=== PATIENT | female | born 1980 | race Caucasian/White ===

== ENCOUNTER 2016-07-10 14:13 | Emergency (ER) | payer OTHER ==
[2016-07-10] MEDS ORDERED: MECLIZINE 12.5 MG TAB As Ordered ONE (15:44)
--- NOTE | 2016-07-10 16:12 | REP ---
Head CT without contrast: History: Vertigo. Comparison study: No comparison brain imaging. CT findings: Bone window settings demonstrate an intact bony calvarium. There is no evidence of skull fracture or incidental bony calvarial lesion. There is mild mucosal thickening in the upper portion of the left maxillary sinus. The visualized paranasal sinuses appear otherwise clear. No intraorbital abnormality is seen. On soft tissue window setting images; the lateral, third, and fourth ventricles are normal in size and position. Samaniego-white differentiation pattern is normal above and below the tentorium. There are is no evidence of intracranial hemorrhage. No mass, edema, infarction, or midline shift is seen. No extra-axial fluid collection is appreciated. Impression: Mild mucosal thickening in the left maxillary sinus, otherwise negative noncontrast head CT. Signed by Curtis Metz MD 07/10/2016 04:04 P
--- NOTE | 2016-07-10 16:40 | EDDOCDS ---
Physician Documentation [facility] Name: Samira Dozier Age: 36 yrs Sex: Female : 1980 Arrival Date: 07/10/2016 Time: 14:13 Bed PR Private MD: Devin Zepeda MD Disposition: 07/10/16 16:29 Discharged to Home/Self Care. Impression: Benign paroxysmal vertigo, unspecified ear, Nausea with vomiting, unspecified. - Condition is Stable. - Discharge Instructions: Benign Positional Vertigo, Nausea and Vomiting. - Prescriptions for Meclizine 25 mg Oral Tablet - take 1 tablet by ORAL route every 8 hours As needed; 30 tablet. Tigan 300 mg Oral Capsule - take 1 capsule by ORAL route every 12 hours As needed; 20 capsule. - Work Release Form - 2 day, Medication Reconciliation, Local Pharmacy Hours form. - Follow up: Emergency Department; When: As needed; Reason: Worsening of conditions. Follow up: Private Physician; When: 2 - 3 days; Reason: Wound/Symptom Recheck, Recheck today's complaints, Continuance of care. - Problem is new. - Symptoms have improved. Historical: - Allergies: No known drug Allergies; - Home Meds: 1. escitalopram oxalate 10 mg oral tab 1 tab once daily 2. omeprazole 40 mg oral cpDR 1 cap once daily - PMHx: Hiatal Hernia; ITP; GERD; Anxiety; - PSHx: cyst removal from neck; - Social history: Smoking status: Patient uses tobacco products, current some day smoker. No barriers to communication noted, The patient speaks fluent Trinidadian, Speaks appropriately for age. - Family history: Not pertinent. - : The pt / caregiver states he / she is not on anticoagulants. Home medication list is obtained from the patient. - Exposure Risk Screening:: None identified. 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 unk LMP jo3 Vital Signs: 14:16 BP 164 / 101; Pulse 103; Resp 20; Temp 98.0(O); Pulse Ox 98% on R/A; Weight 96.62 kg / jrd 213.01 lbs (R); Height 5 ft. 5 in. (165.10 cm) (R); Pain 3/10; 15:10 BP 146 / 108 LA Supine (man/lg); jml1 16:38 BP 156 / 101; Pulse 81; Resp 18; Temp 98.6(T); Pulse Ox 95% on R/A; Pain 0/10; ck1 14:16 Body Mass Index 35.44 (96.62 kg, 165.10 cm) jrd MDM: 14:35 ECG WITH READING ER PHYS+CARDIAG ordered. EDMS 15:06 Recheck B/P ordered. dt4 15:39 Meclizine 25 mg PO once ordered. dt4 15:39 CT Head Without Contrast Ordered. EDMS 15:52 ED course: PT STATES BEGINNING AT 1000 TODAY, STALLWORTH WITH "VERTIGO SYMPTOMS INCLUDING dt4 DIZZINESS, FALLING OVER, NAUSEA AND VOMITING. STATES WAS AT HOME, CLEANING TODAY AND WHEN SHE HUNG A PICTURE, SHE FELL OVER. STATES SYMPTOMS WORSE WHEN LOOKING UP AND DOWN. STATES DRANK THREE 16 OZ BEERS LAST NIGHT, WHICH IS NORMAL FOR HER, AND IS A SMOKER. FAMILY HX OF CVA IN UNCLE, NONE FOR PARENTS. DENIES CONTROL. STATES NO HEAD INJURY LAST NIGHT WHILE DRINKING. STATES TOOK MOTRIN TODAY AND STALLWORTH RESOLVED, BUT STILL HAVING DIFFICULTY WALKING, I ALWAYS TIP TO THE RIGHT. . 16:15 [facility] Payment Agreement was scanned into [employer] and attached to record. [facility] 16:15 Financial registration complete. gjb Administered Medications: 15:47 Drug: Meclizine 25 mg [meclizine 12.5 mg tablet (2 tabs)] Route: PO; ck1 Signatures: Dispatcher [employer] EDMS Tracey Cannon RN RN ck1 Phoebe LoaizaRN RN jo3 Kiki Middleton PA-C PA-C dt4 Jazmyne Marks The chart was reviewed and I authenticate all verbal orders and agree with the evaluation and treatment provided.Attachments: 16:15 [facility] Payment Agreement gjb MTDD
--- NOTE | 2016-07-10 16:40 | EDDOCDS ---
Nurse's Notes [facility] Name: Samira Dozier Age: 36 yrs Sex: Female : 1980 Arrival Date: 07/10/2016 Time: 14:13 Bed PR Private MD: Devin Zepeda MD Diagnosis: Benign paroxysmal vertigo, unspecified ear;Nausea with vomiting, unspecified Presentation: 07/10 14:27 Presenting complaint: Patient states: Awoke this morning at 1000 and had a STALLWORTH and was jo3 mildly dizzy. Took ibuprofen. STALLWORTH resolved and dizziness keeps getting worse. dizziness remains when pt sits still but is much worse if she moves her head. Adult Sepsis Screening: The patient does not have new or worsening altered mentation. Patient's respiratory rate is less than 22. Systolic blood pressure is greater than 100. Patient has a qSOFA score of 0- Negative Sepsis Screen. Suicide/Homicide risk assessment- the patient denies having any suicidal and/or homicidal ideations and does not present with any other emotional, behavioral or mental health complaints. Status: Patient is not a legal service specialist or dependent. Transition of care: patient was not received from another setting of care. 14:27 Acuity: NATO Level 3 jo3 14:27 Method Of Arrival: Walkin/Carried/Asstd jo3 Triage Assessment: 14:31 General: Appears in no apparent distress, Behavior is appropriate for age, cooperative. jo3 Pain:. HIV screening NA for this visit Offered previously. Neurological: Level of Consciousness is awake, alert, Oriented to person, place, time, Pt reports dizziness at rest that increases with head and body movement . Respiratory: Airway is patent Respiratory effort is even, unlabored. Derm: Skin is pink, warm & dry. 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 unk LMP jo3 Historical: - Allergies: No known drug Allergies; - Home Meds: 1. escitalopram oxalate 10 mg oral tab 1 tab once daily 2. omeprazole 40 mg oral cpDR 1 cap once daily - PMHx: Hiatal Hernia; ITP; GERD; Anxiety; - PSHx: cyst removal from neck; - Social history: Smoking status: Patient uses tobacco products, current some day smoker. No barriers to communication noted, The patient speaks fluent Armenian, Speaks appropriately for age. - Family history: Not pertinent. - : The pt / caregiver states he / she is not on anticoagulants. Home medication list is obtained from the patient. - Exposure Risk Screening:: None identified. Screenin:38 Screening information is obtained from the patient. Fall risk: No risks identified. ck1 Assistance ADL's: requires no assistance with activities of daily living. Abuse/DV Screen: The patient / caregiver reports he/she is: not in a situation that causes fear, pain or injury. Nutritional screening: No deficits noted. Advance Directives: Currently, there is no health care proxy. home support is adequate. Assessment: 16:38 General: Appears in no apparent distress, comfortable, Behavior is appropriate for age, ck1 cooperative, pleasant. Pain: Denies pain. Neurological: Level of Consciousness is awake, alert, obeys commands, Oriented to person, place, time, Denies dizziness. Respiratory: Respiratory effort is unlabored, Respiratory pattern is regular, symmetrical. Derm: Skin is intact, is healthy with good turgor, Skin is pink, warm & dry. Musculoskeletal: No deficits noted. Vital Signs: 14:16 BP 164 / 101; Pulse 103; Resp 20; Temp 98.0(O); Pulse Ox 98% on R/A; Weight 96.62 kg jrd (R); Height 5 ft. 5 in. (165.10 cm) (R); Pain 3/10; 15:10 BP 146 / 108 LA Supine (man/lg); jml1 16:38 BP 156 / 101; Pulse 81; Resp 18; Temp 98.6(T); Pulse Ox 95% on R/A; Pain 0/10; ck1 14:16 Body Mass Index 35.44 (96.62 kg, 165.10 cm) [facility] Vitals: 14:16 Log In Time: July 10, 2016 at 14:11. [facility] ED Course: 14:16 Patient visited by Cecil Mcnulty PCA. jrd 14:16 Devin Zepeda is Private Physician. jrd 14:16 Patient moved to Waiting jrd 14:17 Patient visited by Cecil Mcnulty PCA. jrd 14:17 Patient moved to Pre RCE jrd 14:30 Triage Initiated jo3 14:33 Patient visited by Phoebe Loaiza RN. jo3 14:38 Patient moved to PD2 / 27 jo3 14:43 Patient visited by Abelardo Issa. jml1 14:43 EKG done. (by ED staff). Reviewed by Cristofer Moore MD. jml1 14:45 Patient moved to TR1 jml1 14:48 Patient moved to Pre RCE ck1 14:56 Patient moved to Triage 2 ck1 15:11 Patient visited by Abelardo Issa. jml1 15:18 Kiki Middleton PA-C is PHCP. dt4 15:18 Cristofer Moore MD is Attending Physician. dt4 15:18 Patient visited by Kiki Middleton PA-C. dt4 15:47 Patient visited by Tracey Cannon RN. ck1 15:47 Patient moved to TR1 ck1 16:13 Patient moved to PR nb2 16:15 [facility] Payment Agreement was scanned into [employer] and attached to record. gjb 16:15 CT Head Without Contrast Returned. EDMS 16:38 No IV's were initiated during this patient's visit. No procedures done that require ck1 assistance. 16:39 The patient / caregiver is instructed regarding the plan of care and ED course. ck1 Administered Medications: 15:47 Drug: Meclizine 25 mg [meclizine 12.5 mg tablet (2 tabs)] Route: PO; ck1 Order Results: Radiology Order: CT Head Without Contrast Test: CT Head Without Contrast REASON FOR EXAMINATION: vertigo; Head CT without contrast:; ; History: Vertigo.; ; Comparison study: No comparison brain imaging.; ; CT findings: Bone window settings demonstrate an intact bony calvarium. There; is no evidence of skull fracture or incidental bony calvarial lesion. There is; mild mucosal thickening in the upper portion of the left maxillary sinus. The; visualized paranasal sinuses appear otherwise clear. No intraorbital abnormality; is seen. On soft tissue window setting images; the lateral, third, and fourth; ventricles are normal in size and position. Samaniego-white differentiation pattern; is normal above and below the tentorium. There are is no evidence of; intracranial hemorrhage. No mass, edema, infarction, or midline shift is seen.; No extra-axial fluid collection is appreciated.; ; Impression:; ; Mild mucosal thickening in the left maxillary sinus, otherwise negative; noncontrast head CT.; ; ; Signed by; Curtis Metz MD 07/10/2016 04:04 P; Outcome: 16:29 Discharge ordered by Provider. dt4 16:37 Discharge Assessment: Patient awake, alert and oriented x 3. No cognitive and/or ck1 functional deficits noted. Patient verbalized understanding of disposition instructions. patient administered narcotics - no. The following High Risk Discharge criteria are identified: None. Discharged to home ambulatory. Condition: stable. Discharge instructions given to patient, Instructed on discharge instructions, follow up and referral plans. medication usage, Demonstrated understanding of instructions, medications, Pt was receptive of discharge instructions/ teaching. Prescriptions given X 2, Work note provided to patient. CT Study completed. Property :Personal belongings accompany Pt. 16:39 Patient left the ED. ck1 Signatures: Dispatcher [employer] EDMS Tracey Cannon,RN RN ck1 Phoebe LoaizaRN RN Abelardo Angeles jml1 Kiki Middleton, PA-C PA-C dt4 Cecil Mcnulty, Jazmyne Hess Nicole nb2 MAURILIO
--- NOTE | 2016-07-12 08:57 | ECGEPIP ---
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
--- NOTE | 2016-07-12 17:40 | EDDOCDS ---
Physician Documentation [facility] Name: Samira Dozier Age: 36 yrs Sex: Female : 1980 Arrival Date: 07/10/2016 Time: 14:13 Bed PR Private MD: Devin Zepeda MD Disposition: 07/10/16 16:29 Discharged to Home/Self Care. Impression: Benign paroxysmal vertigo, unspecified ear, Nausea with vomiting, unspecified. - Condition is Stable. - Discharge Instructions: Benign Positional Vertigo, Nausea and Vomiting. - Prescriptions for Meclizine 25 mg Oral Tablet - take 1 tablet by ORAL route every 8 hours As needed; 30 tablet. Tigan 300 mg Oral Capsule - take 1 capsule by ORAL route every 12 hours As needed; 20 capsule. - Work Release Form - 2 day, Medication Reconciliation, Local Pharmacy Hours form. - Follow up: Emergency Department; When: As needed; Reason: Worsening of conditions. Follow up: Private Physician; When: 2 - 3 days; Reason: Wound/Symptom Recheck, Recheck today's complaints, Continuance of care. - Problem is new. - Symptoms have improved. Historical: - Allergies: No known drug Allergies; - Home Meds: 1. escitalopram oxalate 10 mg oral tab 1 tab once daily 2. omeprazole 40 mg oral cpDR 1 cap once daily - PMHx: Hiatal Hernia; ITP; GERD; Anxiety; - PSHx: cyst removal from neck; - Social history: Smoking status: Patient uses tobacco products, current some day smoker. No barriers to communication noted, The patient speaks fluent Palestinian, Speaks appropriately for age. - Family history: Not pertinent. - : The pt / caregiver states he / she is not on anticoagulants. Home medication list is obtained from the patient. - Exposure Risk Screening:: None identified. 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 unk LMP jo3 Vital Signs: 14:16 BP 164 / 101; Pulse 103; Resp 20; Temp 98.0(O); Pulse Ox 98% on R/A; Weight 96.62 kg / jrd 213.01 lbs (R); Height 5 ft. 5 in. (165.10 cm) (R); Pain 3/10; 15:10 BP 146 / 108 LA Supine (man/lg); jml1 16:38 BP 156 / 101; Pulse 81; Resp 18; Temp 98.6(T); Pulse Ox 95% on R/A; Pain 0/10; ck1 14:16 Body Mass Index 35.44 (96.62 kg, 165.10 cm) jrd MDM: 14:35 ECG WITH READING ER PHYS+CARDIAG ordered. EDMS 15:06 Recheck B/P ordered. dt4 15:39 Meclizine 25 mg PO once ordered. dt4 15:39 CT Head Without Contrast Ordered. EDMS 15:52 ED course: PT STATES BEGINNING AT 1000 TODAY, STALLWORTH WITH "VERTIGO SYMPTOMS INCLUDING dt4 DIZZINESS, FALLING OVER, NAUSEA AND VOMITING. STATES WAS AT HOME, CLEANING TODAY AND WHEN SHE HUNG A PICTURE, SHE FELL OVER. STATES SYMPTOMS WORSE WHEN LOOKING UP AND DOWN. STATES DRANK THREE 16 OZ BEERS LAST NIGHT, WHICH IS NORMAL FOR HER, AND IS A SMOKER. FAMILY HX OF CVA IN UNCLE, NONE FOR PARENTS. DENIES CONTROL. STATES NO HEAD INJURY LAST NIGHT WHILE DRINKING. STATES TOOK MOTRIN TODAY AND STALLWORTH RESOLVED, BUT STILL HAVING DIFFICULTY WALKING, I ALWAYS TIP TO THE RIGHT. . 16:15 [facility] Payment Agreement was scanned into [employer] and attached to record. [facility] 16:15 Financial registration complete. [facility] 07/11 11:39 T-Sheet-- Draft Copy was scanned into [employer] and attached to record. gb 11:39 ECG/EKG was scanned into [employer] and attached to record. gb Administered Medications: 07/10 15:47 Drug: Meclizine 25 mg [meclizine 12.5 mg tablet (2 tabs)] Route: PO; ck1 Signatures: Dispatcher [employer] EDOH Lupe Hensley, Reg Reg gb Tracey CannonRN RN ck1 Phoebe LoaizaRN RN jo3 Kiki Middleton PA-C PA-C dt4 Jazmyne Marks The chart was reviewed and I authenticate all verbal orders and agree with the evaluation and treatment provided.Attachments: 16:15 [facility] Payment Agreement [facility] 07/11 11:39 T-Sheet-- Draft Copy gb 11:39 ECG/EKG Chart Complete MTDD
--- NOTE | 2016-07-12 17:40 | EDDOCDS ---
Physician Documentation [facility] Name: Samira Dozier Age: 36 yrs Sex: Female : 1980 Arrival Date: 07/10/2016 Time: 14:13 Bed PR Private MD: Devin Zepeda MD Disposition: 07/10/16 16:29 Discharged to Home/Self Care. Impression: Benign paroxysmal vertigo, unspecified ear, Nausea with vomiting, unspecified. - Condition is Stable. - Discharge Instructions: Benign Positional Vertigo, Nausea and Vomiting. - Prescriptions for Meclizine 25 mg Oral Tablet - take 1 tablet by ORAL route every 8 hours As needed; 30 tablet. Tigan 300 mg Oral Capsule - take 1 capsule by ORAL route every 12 hours As needed; 20 capsule. - Work Release Form - 2 day, Medication Reconciliation, Local Pharmacy Hours form. - Follow up: Emergency Department; When: As needed; Reason: Worsening of conditions. Follow up: Private Physician; When: 2 - 3 days; Reason: Wound/Symptom Recheck, Recheck today's complaints, Continuance of care. - Problem is new. - Symptoms have improved. Historical: - Allergies: No known drug Allergies; - Home Meds: 1. escitalopram oxalate 10 mg oral tab 1 tab once daily 2. omeprazole 40 mg oral cpDR 1 cap once daily - PMHx: Hiatal Hernia; ITP; GERD; Anxiety; - PSHx: cyst removal from neck; - Social history: Smoking status: Patient uses tobacco products, current some day smoker. No barriers to communication noted, The patient speaks fluent Irish, Speaks appropriately for age. - Family history: Not pertinent. - : The pt / caregiver states he / she is not on anticoagulants. Home medication list is obtained from the patient. - Exposure Risk Screening:: None identified. 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 unk LMP jo3 Vital Signs: 14:16 BP 164 / 101; Pulse 103; Resp 20; Temp 98.0(O); Pulse Ox 98% on R/A; Weight 96.62 kg / jrd 213.01 lbs (R); Height 5 ft. 5 in. (165.10 cm) (R); Pain 3/10; 15:10 BP 146 / 108 LA Supine (man/lg); jml1 16:38 BP 156 / 101; Pulse 81; Resp 18; Temp 98.6(T); Pulse Ox 95% on R/A; Pain 0/10; ck1 14:16 Body Mass Index 35.44 (96.62 kg, 165.10 cm) jrd MDM: 14:35 ECG WITH READING ER PHYS+CARDIAG ordered. EDMS 15:06 Recheck B/P ordered. dt4 15:39 Meclizine 25 mg PO once ordered. dt4 15:39 CT Head Without Contrast Ordered. EDMS 15:52 ED course: PT STATES BEGINNING AT 1000 TODAY, STALLWORTH WITH "VERTIGO SYMPTOMS INCLUDING dt4 DIZZINESS, FALLING OVER, NAUSEA AND VOMITING. STATES WAS AT HOME, CLEANING TODAY AND WHEN SHE HUNG A PICTURE, SHE FELL OVER. STATES SYMPTOMS WORSE WHEN LOOKING UP AND DOWN. STATES DRANK THREE 16 OZ BEERS LAST NIGHT, WHICH IS NORMAL FOR HER, AND IS A SMOKER. FAMILY HX OF CVA IN UNCLE, NONE FOR PARENTS. DENIES CONTROL. STATES NO HEAD INJURY LAST NIGHT WHILE DRINKING. STATES TOOK MOTRIN TODAY AND STALLWORTH RESOLVED, BUT STILL HAVING DIFFICULTY WALKING, I ALWAYS TIP TO THE RIGHT. . 16:15 [facility] Payment Agreement was scanned into [employer] and attached to record. [facility] 16:15 Financial registration complete. [facility] 07/11 11:39 T-Sheet-- Draft Copy was scanned into [employer] and attached to record. gb 11:39 ECG/EKG was scanned into [employer] and attached to record. gb Administered Medications: 07/10 15:47 Drug: Meclizine 25 mg [meclizine 12.5 mg tablet (2 tabs)] Route: PO; ck1 Signatures: Dispatcher [employer] EDAK Lupe Hensley, Reg Reg gb Tracey CannonRN RN ck1 Phoebe LoaizaRN RN jo3 Kiki Middleton PA-C PA-C dt4 Jazmyne Marks The chart was reviewed and I authenticate all verbal orders and agree with the evaluation and treatment provided.Attachments: 16:15 [facility] Payment Agreement [facility] 07/11 11:39 T-Sheet-- Draft Copy gb 11:39 ECG/EKG Chart Complete MTDD
--- NOTE | 2016-07-12 17:40 | EDDOCDS ---
Nurse's Notes [facility] Name: Doreen Dozier Age: 36 yrs Sex: Female : 1980 Arrival Date: 07/10/2016 Time: 14:13 Bed PR Private MD: Devin Zepeda MD Diagnosis: Benign paroxysmal vertigo, unspecified ear;Nausea with vomiting, unspecified Presentation: 07/10 14:27 Presenting complaint: Patient states: Awoke this morning at 1000 and had a STALLWORTH and was jo3 mildly dizzy. Took ibuprofen. STALLWORTH resolved and dizziness keeps getting worse. dizziness remains when pt sits still but is much worse if she moves her head. Adult Sepsis Screening: The patient does not have new or worsening altered mentation. Patient's respiratory rate is less than 22. Systolic blood pressure is greater than 100. Patient has a qSOFA score of 0- Negative Sepsis Screen. Suicide/Homicide risk assessment- the patient denies having any suicidal and/or homicidal ideations and does not present with any other emotional, behavioral or mental health complaints. 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 Transition of care: patient was not received from another setting of care. 14:27 Acuity: NATO Level 3 jo3 14:27 Method Of Arrival: Walkin/Carried/Asstd jo3 Triage Assessment: 14:31 General: Appears in no apparent distress, Behavior is appropriate for age, cooperative. jo3 Pain:. HIV screening NA for this visit Offered previously. Neurological: Level of Consciousness is awake, alert, Oriented to person, place, time, Pt reports dizziness at rest that increases with head and body movement . Respiratory: Airway is patent Respiratory effort is even, unlabored. Derm: Skin is pink, warm & dry. 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 unk LMP jo3 Historical: - Allergies: No known drug Allergies; - Home Meds: 1. escitalopram oxalate 10 mg oral tab 1 tab once daily 2. omeprazole 40 mg oral cpDR 1 cap once daily - PMHx: Hiatal Hernia; ITP; GERD; Anxiety; - PSHx: cyst removal from neck; - Social history: Smoking status: Patient uses tobacco products, current some day smoker. No barriers to communication noted, The patient speaks fluent [place], Speaks appropriately for age. - Family history: Not pertinent. - : The pt / caregiver states he / she is not on anticoagulants. Home medication list is obtained from the patient. - Exposure Risk Screening:: None identified. Screenin:38 Screening information is obtained from the patient. Fall risk: No risks identified. ck1 Assistance ADL's: requires no assistance with activities of daily living. Abuse/DV Screen: The patient / caregiver reports he/she is: not in a situation that causes fear, pain or injury. Nutritional screening: No deficits noted. Advance Directives: Currently, there is no health care proxy. home support is adequate. Assessment: 16:38 General: Appears in no apparent distress, comfortable, Behavior is appropriate for age, ck1 cooperative, pleasant. Pain: Denies pain. Neurological: Level of Consciousness is awake, alert, obeys commands, Oriented to person, place, time, Denies dizziness. Respiratory: Respiratory effort is unlabored, Respiratory pattern is regular, symmetrical. Derm: Skin is intact, is healthy with good turgor, Skin is pink, warm & dry. Musculoskeletal: No deficits noted. Vital Signs: 14:16 BP 164 / 101; Pulse 103; Resp 20; Temp 98.0(O); Pulse Ox 98% on R/A; Weight 96.62 kg jrd (R); Height 5 ft. 5 in. (165.10 cm) (R); Pain 3/10; 15:10 BP 146 / 108 LA Supine (man/lg); jml1 16:38 BP 156 / 101; Pulse 81; Resp 18; Temp 98.6(T); Pulse Ox 95% on R/A; Pain 0/10; ck1 14:16 Body Mass Index 35.44 (96.62 kg, 165.10 cm) [facility] Vitals: 14:16 Log In Time: July 10, 2016 at 14:11. [facility] ED Course: 14:16 Patient visited by Cecil Mcnulty PCA. jrd 14:16 Devin Zepeda is Private Physician. jrd 14:16 Patient moved to Waiting jrd 14:17 Patient visited by Cecil Mcnulty PCA. jrd 14:17 Patient moved to Pre RCE jrd 14:30 Triage Initiated jo3 14:33 Patient visited by Phoebe Loaiza RN. jo3 14:38 Patient moved to PD2 / 27 jo3 14:43 Patient visited by Abelardo Issa. jml1 14:43 EKG done. (by ED staff). Reviewed by Cristofer Moore MD. jml1 14:45 Patient moved to TR1 jml1 14:48 Patient moved to Pre RCE ck1 14:56 Patient moved to Triage 2 ck1 15:11 Patient visited by Abelardo Issa. jml1 15:18 Jackson Middleton PA-C is PHCP. dt4 15:18 Cristofer Moore MD is Attending Physician. dt4 15:18 Patient visited by Jackson Middleton PA-C. dt4 15:47 Patient visited by Tracey Cannon RN. ck1 15:47 Patient moved to TR1 ck1 16:13 Patient moved to PR nb2 16:15 [facility] Payment Agreement was scanned into [employer] and attached to record. gjb 16:15 CT Head Without Contrast Returned. EDMS 16:38 No IV's were initiated during this patient's visit. No procedures done that require ck1 assistance. 16:39 The patient / caregiver is instructed regarding the plan of care and ED course. ck1 07/11 11:39 T-Sheet-- Draft Copy was scanned into [employer] and attached to record. gb 11:39 ECG/EKG was scanned into [employer] and attached to record. gb 07/12 09:17 EKG-ADULT Returned. 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; : 1980 Requested By: JACKSON Eli PA-C; Order Number: [id number] Reading MD: Kylie Rodriguez; Measurements; Intervals Harriet; Rate: 84 P: 29; NE: 125 QRS: 28; QRSD: 104 T: 37; QT: 341; QTc: 405; Interpretive Statements; SINUS RHYTHM; POSSIBLE INFERIOR MYOCARDIAL INFARCTION, PROBABLY OLD; INCREASED RATE 09/27/13; Electronically Signed On 07-12-2016 8:57:49 EST by Kylie Rodriguez; Radiology Order: CT Head Without Contrast Test: CT Head Without Contrast REASON FOR EXAMINATION: vertigo; Head CT without contrast:; ; History: Vertigo.; ; Comparison study: No comparison brain imaging.; ; CT findings: Bone window settings demonstrate an intact bony calvarium. There; is no evidence of skull fracture or incidental bony calvarial lesion. There is; mild mucosal thickening in the upper portion of the left maxillary sinus. The; visualized paranasal sinuses appear otherwise clear. No intraorbital abnormality; is seen. On soft tissue window setting images; the lateral, third, and fourth; ventricles are normal in size and position. Samaniego-white differentiation pattern; is normal above and below the tentorium. There are is no evidence of; intracranial hemorrhage. No mass, edema, infarction, or midline shift is seen.; No extra-axial fluid collection is appreciated.; ; Impression:; ; Mild mucosal thickening in the left maxillary sinus, otherwise negative; noncontrast head CT.; ; ; Signed by; Curtis Metz MD 07/10/2016 04:04 P; Outcome: 16:29 Discharge ordered by Provider. dt4 16:37 Discharge Assessment: Patient awake, alert and oriented x 3. No cognitive and/or ck1 functional deficits noted. Patient verbalized understanding of disposition instructions. patient administered narcotics - no. The following High Risk Discharge criteria are identified: None. Discharged to home ambulatory. Condition: stable. Discharge instructions given to patient, Instructed on discharge instructions, follow up and referral plans. medication usage, Demonstrated understanding of instructions, medications, Pt was receptive of discharge instructions/ teaching. Prescriptions given X 2, Work note provided to patient. CT Study completed. Property :Personal belongings accompany Pt. 16:39 Patient left the ED. ck1 Signatures: Dispatcher [employer] EDMS Lupe Hensley, Reg Reg Tracey EliasRN RN ck1 Phoebe Loaiza RN RN Abelardo Angeles jml1 Jackson Middleton, PA-C PA-C dt4 Cecil Mcnulty PCA PCA jrd Beck, Gabriela gjb Rissa Pfeiffer nb2 Chart Complete MTDD
== END 2016-07-10 16:39 | disposition home or self-care (01) ==
LOC: M ED 14:13
DX: H81.10 Benign paroxysmal vertigo, unspecified ear (principal); R11.2 Nausea with vomiting, unspecified; D69.3 Immune thrombocytopenic purpura; K21.9 Gastro-esophageal reflux disease without esophagitis; F41.9 Anxiety disorder, unspecified; F17.210 Nicotine dependence, cigarettes, uncomplicated; Z79.899 Other long term (current) drug therapy

== ENCOUNTER → 2016-09-25 | Outpatient (REF) | payer OTHER | LOC: M OUTALCOH 09:43 | PROVIDERS: ATTEND Psychiatry & Neurology Psychiatry | DX: Z13.9 Encounter for screening, unspecified (principal); F12.10 Cannabis abuse, uncomplicated ==

== ENCOUNTER → 2016-10-09 | Outpatient (CLI) | payer OTHER | LOC: M OUTALCOH 10:25 | PROVIDERS: ATTEND Psychiatry & Neurology Psychiatry | DX: Z13.9 Encounter for screening, unspecified (principal); F10.20 Alcohol dependence, uncomplicated ==

== ENCOUNTER 2016-10-30 09:30 | Outpatient (RCR) | payer OTHER | END 2016-11-06 | LOC: M OUTALCOH 09:30 | PROVIDERS: ATTEND Psychiatry & Neurology Psychiatry | DX: Z13.9 Encounter for screening, unspecified (principal); F10.20 Alcohol dependence, uncomplicated; F17.200 Nicotine dependence, unspecified, uncomplicated ==

== ENCOUNTER 2016-11-07 09:30 | Outpatient (RCR) | payer OTHER | END 2016-12-06 | LOC: M OUTALCOH 09:30 | PROVIDERS: ATTEND Psychiatry & Neurology Psychiatry | DX: Z13.9 Encounter for screening, unspecified (principal); F10.20 Alcohol dependence, uncomplicated; F17.200 Nicotine dependence, unspecified, uncomplicated ==

== ENCOUNTER → 2017-05-26 | Outpatient (REF) | payer OTHER | LOC: M WUC 18:50 | PROVIDERS: ATTEND Physician Assistant | DX: J02.9 Acute pharyngitis, unspecified (principal) ==

== ENCOUNTER → 2018-03-14 | Outpatient (CLI) | payer OTHER | LOC: M WUC 09:57 | DX: M25.562 Pain in left knee (principal) | CPT/HCPCS: 73564 ==

== ENCOUNTER → 2018-05-21 | Outpatient (REF) | payer OTHER ==
[2018-05-21 17:13] LABS: ESTIMATED AVERAGE GLUCOSE 131 MG/DL (60-110); HEMOGLOBIN A1c 6.2 %
== END ==
LOC: M SFHCLERA 11:10
DX: E66.09 Other obesity due to excess calories (principal); Z68.36 Body mass index [BMI] 36.0-36.9, adult
CPT/HCPCS: 83036

== ENCOUNTER → 2018-07-02 | Outpatient (REF) | payer OTHER ==
[2018-07-04 15:32] LABS: HPV HYBRID CAPTURE II Negative (Negative)
== END ==
LOC: M SFHCLERA 17:35
PROVIDERS: ATTEND Family Medicine
DX: Z12.4 Encounter for screening for malignant neoplasm of cervix (principal)

== ENCOUNTER 2018-09-01 09:14 | Outpatient (RCR) | payer OTHER | END 2018-09-06 | LOC: M PT 09:14 | PROVIDERS: ATTEND Family Medicine | DX: Z51.89 Encounter for other specified aftercare (principal); M25.511 Pain in right shoulder ==

== ENCOUNTER → 2019-06-22 | Outpatient (CLI) | payer OTHER ==
--- NOTE | 2019-06-22 19:02 | REP ---
Digital diagnostic bilateral mammography with CAD, 3-D tomography, and focused right breast sonography. History: Right breast lump. Palpable lump present for 1 year in the right breast. A skin marker is affixed to the skin at the site for mammography. No comparison mammography. Mammographic findings: Breast parenchyma is extensively fat replaced. There is no dominant density at the site of the palpable lump in the right breast or elsewhere on either side. Normal appearing lymph nodes are noted in the axilla. 3-D tomography shows no additional abnormality. Sonographic findings: The right breast is scanned from 8 o'clock 10 o'clock through the area of the palpable lump at approximately 9 o'clock. Fairly homogeneous background echotexture is seen. No cyst, mass, or acoustic shadowing is seen. Impression: BIRADS category one negative breast imaging findings. Clinical follow-up is advised. Repeat screening mammography recommended at age 40. BIRADS 1: BI-RADS/ACR category 1 mammogram. Negative Mammogram. This mammogram was interpreted with the aid of an FDA-approved computer-aided detection system. The patient states that she/he has not had a clinical breast exam in over a year. The patient letter being requested is m2 This patient's estimated Tyrer-Cuzick lifetime risk assessment for the breast cancer is 12.8 %. Electronically Signed by Curtis Metz MD 06/23/2019 08:10 A
== END ==
LOC: M RAD 13:18
PROVIDERS: ATTEND Nurse Practitioner Family
DX: Z12.31 Encounter for screening mammogram for malignant neoplasm of breast (principal); N63.10 Unspecified lump in the right breast, unspecified quadrant
CPT/HCPCS: 76642; 77066; G0279

== ENCOUNTER → 2019-08-07 | Outpatient (REF) | payer OTHER | LOC: M LAB REF 11:51 | PROVIDERS: ATTEND Physician Assistant | DX: R50.9 Fever, unspecified (principal) ==

== ENCOUNTER → 2019-08-19 | Outpatient (REF) | payer OTHER ==
[2019-08-19 13:33] LABS: HEMOGLOBIN A1c 5.8 %
== END ==
LOC: M SFHCLERA 10:02
PROVIDERS: ATTEND Nurse Practitioner Family
DX: R73.03 Prediabetes (principal)

== ENCOUNTER → 2019-12-27 | Outpatient (CLI) | payer OTHER | LOC: M LABSMTC 10:44 | PROVIDERS: ATTEND Pediatrics | DX: Z20.828 Contact with and (suspected) exposure to other viral communicable diseases (principal); Z11.59 Encounter for screening for other viral diseases ==

== ENCOUNTER → 2020-05-19 | Outpatient (CLI) | payer SELFPAY | LOC: M LABSMTC 13:47 | PROVIDERS: ATTEND Family Medicine | DX: Z20.828 Contact with and (suspected) exposure to other viral communicable diseases (principal) ==

== ENCOUNTER 2024-05-10 21:54 | Emergency (ER) | payer SELFPAY, BC ==
[~2024-05-10] VITALS: Ht 165.1 cm; Wt 121.6 kg
[2024-05-10] MEDS: predniSONE 20 MG TAB PO ONE (23:17)
[2024-05-10] MEDS: CETIRIZINE (ZyrTEC) 10 MG TAB PO ONE (23:18)
[2024-05-11 00:18] VITALS: BP 138/88; TEMP 98.4; O2SAT 97
[2024-05-11] MEDS ORDERED: CETI10TA4 PO (00:18)
[2024-05-11] MEDS ORDERED: PRED20TA PO (00:18)
== END 2024-05-11 00:24 | disposition home or self-care (01) ==
LOC: M ED 21:54
DX: L50.9 Urticaria, unspecified (principal); Z88.1 Allergy status to other antibiotic agents; Z88.8 Allergy status to other drugs, medicaments and biological substances; I10 Essential (primary) hypertension; F17.200 Nicotine dependence, unspecified, uncomplicated
CPT/HCPCS: 99283; J7512

== ENCOUNTER → 2024-07-23 | Outpatient (CLI) | payer OTHER ==
[~2024-07-23] MED LIST: CETI10TA4 PO; PRED20TA PO
== END ==
LOC: M WHC 09:35
DX: Z12.31 Encounter for screening mammogram for malignant neoplasm of breast (principal); R92.313 Mammographic fatty tissue density, bilateral breasts

== ENCOUNTER → 2024-07-23 | Outpatient (CLI) | payer OTHER ==
[2024-07-23 14:02] LABS: BASO % 0.5 % (0.0-1.0); EOS # 0.1 10^3/uL (0.0-0.5); EOS % 0.8 % (0.0-3.0); HEMATOCRIT 33.5 % (36.0-47.0); HEMOGLOBIN 10.4 g/dl (12.0-15.5); LYMPH # 2.2 10^3/uL (1.5-5.0); LYMPH % 26.5 % (24.0-44.0); MEAN CORPUSCULAR HEMOGLOBIN 25.3 pg (27.0-33.0); MEAN CORPUSCULAR VOLUME 81.5 fl (80.0-96.0); MONO # 0.6 10^3/uL (0.0-0.8); MONO % 7.4 % (2.0-8.0); NEUTROPHILS # 5.4 10^3/uL (1.5-8.5); NEUTROPHILS % 64.4 % (36.0-66.0); PLATELET COUNT, AUTOMATED 131 10^3/uL (150-450); RED BLOOD COUNT 4.11 10^6/uL (4.00-5.40); WHITE BLOOD COUNT 8.4 10^3/uL (4.0-10.0)
[2024-07-23 14:06] LABS: ALBUMIN 3.4 G/DL (3.2-5.2); ALKALINE PHOSPHATASE 68 U/L (35-104); ALT/SGPT 25 U/L (7.0-40); AST/SGOT 15 U/L (<34); BILIRUBIN,TOTAL 0.3 MG/DL (0.3-1.2); BLOOD UREA NITROGEN 9 MG/DL (9-23); CALCIUM LEVEL 8.9 MG/DL (8.5-10.1); CARBON DIOXIDE LEVEL 26 MMOL/L (20-31); CHLORIDE LEVEL 108 MMOL/L (98-107); CHOLESTEROL LEVEL 226 MG/DL (<200); CHOLESTEROL RISK RATIO 4.72 (<5); CREATININE FOR GFR 0.54 MG/DL (0.55-1.30); GLOMERULAR FILTRATION RATE > 60.0 (>58); GLUCOSE, FASTING 110 MG/DL (60-100); HDL CHOLESTEROL 47.8 MG/DL (>40); LDL CHOLESTEROL 159.2 MG/DL (<100); NON-HDL-C 178.2 MG/DL; POTASSIUM SERUM 4.5 MMOL/L (3.5-5.1); SODIUM LEVEL 137 MMOL/L (136-145); TOTAL PROTEIN 7.5 G/DL (5.7-8.2); TRIGLYCERIDES LEVEL 95 MG/DL (<150)
[2024-07-23 14:08] LABS: THYROID STIMULATING HORMONE 0.833 uIU/ML (0.55-4.78); TOTAL 25(OH) VITAMIN D 26.7 NG/ML (20.0-100.0)
[2024-07-23 14:15] LABS: HEMOGLOBIN A1c 5.8 % (4.0-6.0)
== END ==
LOC: M PLALAB 09:33
DX: D69.3 Immune thrombocytopenic purpura (principal); R73.03 Prediabetes; E55.9 Vitamin D deficiency, unspecified

== ENCOUNTER 2025-03-11 01:12 | Emergency (ER) | payer OTHER ==
[~2025-03-11] VITALS: Ht 165.1 cm; Wt 109.4 kg
[2025-03-11 03:32] VITALS: BP 154/96; TEMP 98.5; O2SAT 97
== END 2025-03-11 05:35 | disposition left against medical advice (07) ==
LOC: M ED 01:12
DX: Z53.21 Procedure and treatment not carried out due to patient leaving prior to being seen by health care provider (principal)